=== PATIENT | male | born 1955 | race Caucasian/White ===

== ENCOUNTER 2018-01-15 15:25 | Inpatient (IN) | payer BC ==
[2018-01-15] VITALS (288 sets, daily range): BP systolic 126–139; BP diastolic 88–99; PULSE 69–80; TEMP 97–97.1; O2SAT 89–99
[~2018-01-15] VITALS: Ht 182.9 cm; Wt 112.6 kg
[2018-01-15] MEDS ORDERED: SYNTHROID0.2 MG/TAB PO (15:30)
[2018-01-15] MEDS ORDERED: ZYLOPRIM 300MG300 MG PO (15:31)
[2018-01-15] MEDS ORDERED: PRINIVIL20 MG PO (15:31)
[2018-01-15] MEDS ORDERED: ZOCOR 20MG20 MG PO (15:31)
[2018-01-15] MEDS ORDERED: LOFIBRA160 MG PO (15:32)
[2018-01-15 18:26] LABS: INR 1.1 (0.8-3.0); PROTHROMBIN TIME 12.8 SECONDS (9.7-12.8)
[2018-01-16] VITALS (442 sets, daily range): BP systolic 110–128; BP diastolic 72–90; PULSE 65–80; TEMP 97.1–98.4; O2SAT 78–100
[2018-01-16 05:22] LABS: BASO # 0.1 (0.0-0.2); BASO % 0.6 % (0.0-2.0); EOS # 0.3 (0.0-0.7); EOS % 3.4 % (0-4.0); GRAN % 60.6 % (42.2-75.2); HEMOGLOBIN 11.7 g/dl (13.5-18.0); LYMPH # 2.3 (1.2-3.4); LYMPH % 28.2 % (20.0-51.0); MEAN CELL VOLUME 98 fl (80.0-100.0); MEAN CORPUSCULAR HEMOGLOBIN 34 pg (27.0-31.0); MEAN CORPUSCULAR HGB CONC 35 g/dl (33.0-37.0); MEAN PLATELET VOLUME 10.3 fl (7.4-10.4); MONO # 0.6 (0.1-0.6); MONO % 6.8 % (1.7-9.3); PLATELET COUNT 169 K/mm3 (130-400); RED BLOOD COUNT 3.42 M/mm3 (4.20-5.60); REDCELL DISTRIBUTION WIDTH-CV 13.3 % (11.5-14.5)
[2018-01-16 05:25] LABS: HEMATOCRIT 33.4 % (42.0-52.0)
[2018-01-16 05:32] LABS: CALCIUM 9.3 mg/dL (8.4-10.2); CREATININE, serum 1.2 mg/dL (0.66-1.25); POTASSIUM 4.5 mmol/L (3.4-5.0)
[2018-01-16 23:40] LABS: COAG INR 1.2 (0.9-1.2)
[2018-01-17] VITALS: BP 106/71; PULSE 65; TEMP 97.2
[2018-01-17 04:00] VITALS: BP 110/76; PULSE 79; TEMP 97.6
[2018-01-17 06:14] LABS: CALCIUM 9.8 mg/dL (8.4-10.2); CREATININE, serum 1.26 mg/dL (0.66-1.25); POTASSIUM 4.6 mmol/L (3.4-5.0)
[2018-01-17 06:17] LABS: BASO % 0.4 % (0.0-2.0); EOS # 0.2 (0.0-0.7); EOS % 2.1 % (0-4.0); GRAN # 6.8 (1.4-6.5); GRAN % 70.3 % (42.2-75.2); HEMOGLOBIN 12.6 g/dl (13.5-18.0); LYMPH % 20.8 % (20.0-51.0); MEAN CELL VOLUME 98 fl (80.0-100.0); MEAN CORPUSCULAR HEMOGLOBIN 34 pg (27.0-31.0); MEAN CORPUSCULAR HGB CONC 35 g/dl (33.0-37.0); MONO # 0.6 (0.1-0.6); MONO % 6.1 % (1.7-9.3); PLATELET COUNT 190 K/mm3 (130-400); RED BLOOD COUNT 3.67 M/mm3 (4.20-5.60); REDCELL DISTRIBUTION WIDTH-CV 13.3 % (11.5-14.5)
[2018-01-17 08:00] VITALS: BP 111/81; PULSE 74; TEMP 97
[2018-01-17] MEDS ORDERED: XARELTO15 MG PO (10:15)
[2018-01-17] MEDS ORDERED: XARELTO20 MG PO (10:16)
[2018-01-17 11:36] LABS: FACTOR V LEIDEN MUTATION B Negative (Negative); PARTIAL THROMBLASTIN TIME 35.1 seconds (25.0-35.0); PT G20210A MUTATION B Negative (Negative)
[2018-01-18 09:30] LABS: ANTI-THROMBIN III 93 % (72-128)
[2018-01-18 09:31] LABS: PROTEIN C ACTIVITY 147 % (70-150)
[2018-01-21 13:34] LABS: LUPUS ANTICOAGULANT INR 1.3 (()); LUPUS ANTICOAGULANT PT 14.2 sec (())
== END 2018-01-17 12:02 | disposition home or self-care (01) | DRG 176 ==
LOC: ICU 15:25 → EDSEX 15:25 → ICU 01-17 12:02
PROVIDERS: Internal Medicine; Internal Medicine Pulmonary Disease; Nurse Practitioner
DX: I26.99 Other pulmonary embolism without acute cor pulmonale (principal); E78.5 Hyperlipidemia, unspecified; I10 Essential (primary) hypertension; M10.9 Gout, unspecified; Z86.718 Personal history of other venous thrombosis and embolism; F17.290 Nicotine dependence, other tobacco product, uncomplicated
CPT/HCPCS: 99223-AI; 99233-AI